=== PATIENT | male | born 1965 | race Two or more races ===

== ENCOUNTER 2019-04-04 18:53 | Emergency (ER) | payer SELFPAY ==
--- NOTE | 2019-04-04 19:21 | EDM.PDOC ---
ED HPI GENERAL MEDICAL PROBLEM - General Chief Complaint: Gastrointestinal Problem Stated Complaint: ABDOMINAL/BACK PAIN Time Seen by Provider: 04/04/19 19:21 - History of Present Illness INITIAL COMMENTS - FREE TEXT/NARRATIVE: 52-year-old male presents to the emergency room with colon problems. Several months back patient was diagnosed with colon cancer in [facility]. The patient has not had follow-up for this and now is in [place] and wants it dealt with. He has some discomfort with this he is able to eat and drink he is not aware of any fevers or chills. He is had no prior history of this problem. Lower Abdominal Pain Score (Numeric/FACES): 10 - Related Data Allergies Allergy/AdvReac Type Severity Reaction Status Date / Time No Known Allergies Allergy Verified 04/04/19 19:11 Home Meds: Home Meds . [No Known Home Meds] 04/04/19 [History] Past Medical History HEENT History: Reports: Other (See Below) Other HEENT History: glasses Gastrointestinal History: Reports: Hemorrhoids, Other (See Below) Other Gastrointestinal History: colon cancer Musculoskeletal History: Reports: Osteoporosis Other Musculoskeletal History: left hip osteoporosis Social & Family History - Tobacco Use Smoking Status *Q: Never Smoker Second Hand Smoke Exposure: No - Caffeine Use Caffeine Use: Reports: Coffee - Recreational Drug Use Recreational Drug Use: No ED ROS GENERAL - Review of Systems Review Of Systems: See Below Constitutional: Reports: No Symptoms HEENT: Reports: No Symptoms Respiratory: Reports: No Symptoms, Cough Endocrine: Reports: No Symptoms GI/Abdominal: Reports: Abdominal Pain. Denies: Constipation, Diarrhea, Nausea, Vomiting : Reports: No Symptoms Musculoskeletal: Reports: No Symptoms Skin: Reports: No Symptoms Neurological: Reports: No Symptoms Psychiatric: Reports: No Symptoms Hematologic/Lymphatic: Reports: No Symptoms ED EXAM, GI/ABD - Physical Exam Exam: See Below Exam Limited By: No Limitations General Appearance: Alert, No Apparent Distress Head: Atraumatic, Normocephalic Neck: Normal Inspection, Supple, Non-Tender, Full Range of Motion Respiratory/Chest: No Respiratory Distress, Lungs Clear, Normal Breath Sounds Cardiovascular: Regular Rate, Rhythm, No Edema, No Murmur GI/Abdominal Exam: Normal Bowel Sounds, Soft, Tender (Tenderness over the sigmoid colon then he has some vague lower quadrant discomfort no rigidity rebound or guarding) Back Exam: Normal Inspection. No: CVA Tenderness (L), CVA Tenderness (R) Course - Vital Signs Last Recorded V/S: Last Vital Signs Temp 36.7 C 04/04/19 19:10 Pulse 73 04/04/19 19:10 Resp 14 04/04/19 19:10 BP 158/86 H 04/04/19 19:10 Pulse Ox 99 04/04/19 19:10 - Orders/Labs/Meds Labs: Laboratory Tests 04/04/19 04/04/19 04/04/19 Range/Units 19:46 19:53 19:53 WBC 7.09 (4.23-9.07) K/mm3 RBC 4.38 L (4.63-6.08) M/mm3 Hgb 13.2 L (13.7-17.5) gm/dl Hct 36.6 L (40.1-51.0) % MCV 83.6 (79.0-92.2) fl MCH 30.1 (25.7-32.2) pg MCHC 36.1 H (32.2-35.5) g/dl RDW Std Deviation 38.3 (35.1-43.9) fL Plt Count 215 (163-337) K/mm3 MPV 10.5 (9.4-12.3) fl Neutrophils % (Manual) 43 (40-60) % Band Neutrophils % 2 (0-10) % Lymphocytes % (Manual) 46 H (20-40) % Atypical Lymphs % 0 % Monocytes % (Manual) 6 (2-10) % Eosinophils % (Manual) 3 (0.8-7.0) % Basophils % (Manual) 0 L (0.2-1.2) Platelet Estimate Adequate RBC Morph Comment Normal Sodium 144 (136-145) mEq/L Potassium 3.5 (3.5-5.1) mEq/L Chloride 108 H (98-107) mEq/L Carbon Dioxide 25 (21-32) mEq/L Anion Gap 14.5 (5-15) BUN 19 H (7-18) mg/dL Creatinine 0.8 (0.7-1.3) mg/dL Est Cr Clr Drug Dosing 109.62 mL/min Estimated GFR (MDRD) > 60 (>60) mL/min BUN/Creatinine Ratio 23.8 H (14-18) Glucose 97 (74-106) mg/dL Calcium 8.7 (8.5-10.1) mg/dL Total Bilirubin 0.4 (0.2-1.0) mg/dL AST 20 (15-37) U/L ALT 46 (16-63) U/L Alkaline Phosphatase 88 (46-116) U/L Total Protein 7.3 (6.4-8.2) g/dl Albumin 3.9 (3.4-5.0) g/dl Globulin 3.4 gm/dL Albumin/Globulin Ratio 1.2 (1-2) Lipase (73-393) U/L Urine Color Yellow (Yellow) Urine Appearance Clear (Clear) Urine pH 6.5 (5.0-8.0) Ur Specific [place] 1.025 (1.005-1.030) Urine Protein Negative (Negative) Urine Glucose (UA) Negative (Negative) Urine Ketones Negative (Negative) Urine Occult Blood Negative (Negative) Urine Nitrite Negative (Negative) Urine Bilirubin Negative (Negative) Urine Urobilinogen 0.2 (0.2-1.0) Ur Leukocyte Esterase Trace H (Negative) Urine RBC 0-5 (0-5) /hpf Urine WBC 5-10 H (0-5) /hpf Ur Squamous Epith Cells 0-5 (0-5) /hpf Urine Bacteria Few (FEW) /hpf Urine Mucus Few (FEW) /hpf 04/04/19 Range/Units 19:53 WBC (4.23-9.07) K/mm3 RBC (4.63-6.08) M/mm3 Hgb (13.7-17.5) gm/dl Hct (40.1-51.0) % MCV (79.0-92.2) fl MCH (25.7-32.2) pg MCHC (32.2-35.5) g/dl RDW Std Deviation (35.1-43.9) fL Plt Count (163-337) K/mm3 MPV (9.4-12.3) fl Neutrophils % (Manual) (40-60) % Band Neutrophils % (0-10) % Lymphocytes % (Manual) (20-40) % Atypical Lymphs % % Monocytes % (Manual) (2-10) % Eosinophils % (Manual) (0.8-7.0) % Basophils % (Manual) (0.2-1.2) Platelet Estimate RBC Morph Comment Sodium (136-145) mEq/L Potassium (3.5-5.1) mEq/L Chloride (98-107) mEq/L Carbon Dioxide (21-32) mEq/L Anion Gap (5-15) BUN (7-18) mg/dL Creatinine (0.7-1.3) mg/dL Est Cr Clr Drug Dosing mL/min Estimated GFR (MDRD) (>60) mL/min BUN/Creatinine Ratio (14-18) Glucose (74-106) mg/dL Calcium (8.5-10.1) mg/dL Total Bilirubin (0.2-1.0) mg/dL AST (15-37) U/L ALT (16-63) U/L Alkaline Phosphatase (46-116) U/L Total Protein (6.4-8.2) g/dl Albumin (3.4-5.0) g/dl Globulin gm/dL Albumin/Globulin Ratio (1-2) Lipase 193 (73-393) U/L Urine Color (Yellow) Urine Appearance (Clear) Urine pH (5.0-8.0) Ur Specific [place] (1.005-1.030) Urine Protein (Negative) Urine Glucose (UA) (Negative) Urine Ketones (Negative) Urine Occult Blood (Negative) Urine Nitrite (Negative) Urine Bilirubin (Negative) Urine Urobilinogen (0.2-1.0) Ur Leukocyte Esterase (Negative) Urine RBC (0-5) /hpf Urine WBC (0-5) /hpf Ur Squamous Epith Cells (0-5) /hpf Urine Bacteria (FEW) /hpf Urine Mucus (FEW) /hpf - Re-Assessments/Exams Free Text/Narrative Re-Assessment/Exam: 04/04/19 21:40 Labs reviewed case discussed with Dr. Grant immigration inspector surgeon. The patient should follow-up with Dr. Basilio at the surgery clinic tomorrow afternoon. Departure - Departure Time of Disposition: 21:40 Disposition: Home, Self-Care 01 Clinical Impression: History of colorectal cancer - Discharge Information Referrals: PCP,Not In Area [Primary Care Provider] - Forms: ED Department Discharge Additional Instructions: Return to the emergency room with any questions problems or worsening symptoms. Follow-up at the Hospital clinic to see Dr. Basilio tomorrow afternoon call in the morning for an appointment [phone]
== END 2019-04-04 21:58 | disposition home or self-care (01) ==
LOC: JD.ED 18:53
DX: R10.30 Lower abdominal pain, unspecified (principal); Z85.038 Personal history of other malignant neoplasm of large intestine
CPT/HCPCS: 36415; 80053; 81001; 83690; 85007; 85027; 99284

== ENCOUNTER 2019-04-13 07:02 | Day surgery (SDC) | payer OTHER ==
[~2019-04-13 07:02] MED LIST: Lactated Ringers 1,000 ML IV SCH; Lidocaine 1%/Sod Bicarbonate in NS 8.4% 1 ML Syringe IDERM PRN; Methylergonovine 0.2 MG/1 ML Amp ONE; Sodium Chloride 0.9% 10 ML Syringe FLUSH PRN
[2019-04-13] MEDS ORDERED: Propofol 200 MG/20 ML SDV ONE ×2 (07:19→08:03)
[2019-04-13] MEDS ORDERED: Lidocaine 1% 4 ML ONE (07:19)
[2019-04-13] MEDS ORDERED: Midazolam 1 MG/ML 2 ML SDV ONE (07:19)
[2019-04-13] MEDS ORDERED: fentaNYL 100 MCG/2 ML SDV ONE (07:19)
--- NOTE | 2019-04-13 07:24 | PCM.PREANE ---
Preanesthetic Assessment - Procedure Proposed Procedure: Colonoscopy - Anesthesia/Transfusion/Family Hx Anesthesia History: Prior Anesthesia Without Reaction Family History of Anesthesia Reaction: No Transfusion History: No Prior Transfusion(s) - Review of Systems General: No Symptoms Pulmonary: No Symptoms Cardiovascular: No Symptoms Gastrointestinal: No Symptoms Neurological: No Symptoms Other: Reports: None - Physical Assessment NPO Status Date: 04/12/19 NPO Status Time: 00:00 Height: 1.8 m Weight: 77.2 kg ASA Class: 2 Mental Status: Alert & Oriented x3 Airway Class: Mallampati = 2 Dentition: Reports: Normal Dentition Thyro-Mental Finger Breadths: 2 Mouth Opening Finger Breadths: 2 ROM/Head Extension: Full Lungs: Clear to Auscultation, Normal Respiratory Effort Cardiovascular: Regular Rate, Regular Rhythm - Allergies Allergies/Adverse Reactions: Allergies Allergy/AdvReac Type Severity Reaction Status Date / Time No Known Allergies Allergy Verified 04/12/19 12:20 - Blood Blood Available: No Product(s) Available: None - Anesthesia Plan Pre-Op Medication Ordered: None - Acknowledgements Anesthesia Type Planned: MAC Pt an Appropriate Candidate for the Planned Anesthesia: Yes Alternatives and Risks of Anesthesia Discussed w Pt/Guardian: Yes Pt/Guardian Understands and Agrees with Anesthesia Plan: Yes PreAnesthesia Questionnaire HEENT History: Reports: Impaired Vision, Other (See Below) Other HEENT History: glasses Cardiovascular History: Reports: None Respiratory History: Reports: None Gastrointestinal History: Reports: Hemorrhoids, Other (See Below) Other Gastrointestinal History: colon cancer Genitourinary History: Reports: None PAD CUTTER History: Reports: None Musculoskeletal History: Reports: Osteoporosis Other Musculoskeletal History: left hip osteoporosis Neurological History: Reports: None Psychiatric History: Reports: None Endocrine/Metabolic History: Reports: None Hematologic History: Reports: None Immunologic History: Reports: None Oncologic (Cancer) History: Reports: None Dermatologic History: Reports: None - Past Surgical History Head Surgeries/Procedures: Reports: None HEENT Surgical History: Reports: None Cardiovascular Surgical History: Reports: None Respiratory Surgical History: Reports: None Female Surgical History: Reports: None Male Surgical History: Reports: None Endocrine Surgical History: Reports: None Neurological Surgical History: Reports: None Oncologic Surgical History: Reports: None - SUBSTANCE USE Smoking Status *Q: Never Smoker Tobacco Use Within Last Twelve Months: No Second Hand Smoke Exposure: No Days Per Week of Alcohol Use: 0 Number of Drinks Per Day: 0 Total Drinks Per Week: 0 Recreational Drug Use History: No - HOME MEDS Home Medications: Home Meds Acetaminophen [Tylenol Extra Strength] 500 mg PO Q4H PRN 04/12/19 [History] Ibuprofen [Advil] 200 mg PO TID PRN 04/12/19 [History] - CURRENT (IN HOUSE) MEDS Current Meds: Current Medications Lactated Ringer's (Ringers, Lactated) 1,000 mls @ 125 mls/hr IV ASDIRECTED DARYL Stop: 04/13/19 23:00 Lidocaine/Sodium Bicarbonate (Buffered Lidocaine 1% In Ns 8.4%) 0.25 ml IDERM ONETIME PRN PRN Reason: Prior to IV Start Stop: 04/13/19 18:00 Sodium Chloride (Saline Flush) 10 ml FLUSH ASDIRECTED PRN PRN Reason: Keep Vein Open Stop: 04/13/19 18:00 Discontinued Medications Methylergonovine Maleate (Methergine) Confirm Administered Dose 0.2 mg .ROUTE .STK-MED ONE Stop: 04/12/19 09:10
[2019-04-13] MEDS ORDERED: Sodium Chloride 0.9% 1,000 ML IV SCH (07:45)
--- NOTE | 2019-04-13 08:37 | PCM48HPAN ---
Post Anesthesia Note - EVALUATION WITHIN 48HRS OF ANESTHETIC Vital Signs in Normal Range: Yes Patient Participated in Evaluation: Yes Respiratory Function Stable: Yes Airway Patent: Yes Cardiovascular Function Stable: Yes Hydration Status Stable: Yes Pain Control Satisfactory: Yes Nausea and Vomiting Control Satisfactory: Yes Mental Status Recovered: Yes Vital Signs: Last Vital Signs Temp 36.9 C 04/13/19 07:10 Pulse 80 04/13/19 07:10 Resp 16 04/13/19 07:10 BP 126/86 04/13/19 07:10 Pulse Ox 97 04/13/19 07:10 - COMMENTS/OBSERVATIONS Free Text/Narrative:: no anesthesia complications noted
--- NOTE | 2019-04-13 08:43 | PCM.PRGIL ---
Lower GI Endoscopy Procedure Procedure:: Reports: Colonoscopy Intervention:: Biopsy Biopsy (cm):: 5 Procedure Comments:: Rectal exam revealed large, indurated friable tumor within the anorectal complex spanning the length of the examining digit. Prep was fair. The scope was advanced to the cecum and slowly withdrawn. No additional lesions were identified. Jumbo forceps were used to take three separate tissue samples from the tumor, which was friable and bleeding. Performed By:: Lalo Basilio Date of Service:: 04/13/19 Informed Consent Obtained?: Yes Indications:: Reports: Hx of Colon CA/Polyps Rectodigital Exam:: Reports: Mass Rectodigital Exam Comments:: Large friable mass within anal canal and spanning to distal rectum Sedation:: Reports: IV Depth Reached (Location):: Reports: Cecum - Findings Rectal:: Reports: Other Rectal Comments:: see above Hemorrhoids:: Reports: None Complications:: Reports: None Cultures:: Reports: None - Follow-up Follow-Up:: patient will follow up to review pathology and obtain pelvic MRI to complete staging.
== END 2019-04-13 09:53 | disposition home or self-care (01) ==
LOC: JD.SDS 07:02
PROVIDERS: ATTEND Surgery
DX: C20 Malignant neoplasm of rectum (principal); M81.0 Age-related osteoporosis without current pathological fracture
CPT/HCPCS: 45380; J2001; J2210; J2250; J2704; J3010; J7040; 00811

== ENCOUNTER 2019-05-02 11:35 | Emergency (ER) | payer MEDICAID, OTHER ==
[2019-05-02] MEDS ORDERED: HYDROmorphone 0.5 MG/0.5 ML Syringe IM ONE (11:52)
--- NOTE | 2019-05-02 12:01 | EDM.PDOC ---
ED HPI GENERAL MEDICAL PROBLEM - General Chief Complaint: Abdominal Pain Stated Complaint: ABDOMINAL PAIN Time Seen by Provider: 05/02/19 11:47 Source of Information: Reports: Patient, Family, RN Notes Reviewed History Limitations: Reports: No Limitations - History of Present Illness INITIAL COMMENTS - FREE TEXT/NARRATIVE: Patient is a 53-year-old male who presents to the ED for evaluation of lower abdominal pain. The patient notes he has a recent diagnosis of colon cancer in January 2019. Patient states he is supposed to be starting treatment next week Wednesday. He was diagnosed through Dr. Joaquin at [facility] in [facility]. He notes that he is having lower abdominal pain, that radiates into his low back. He denies any problems pain able to go to the bathroom, he states it is somewhat painful with bowel movements, however his last normal bowel movement was just a few hours ago. He denies any dysuria, urinary frequency or urgency, chest pain, shortness of breath, nausea/vomiting/diarrhea , he states he is able to keep food and fluids down well. He has been trying to take some Tylenol, 500 mg, and 600 mg ibuprofen at home for pain relief, but this is not providing much relief. He notes that the doctor told him he was going to give him some stronger pain medications, but he did not receive this prescription. Patient denies any medical allergies, denies being on any other regular medications, and denies any further abdominal surgeries. 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: Reports: Acetaminophen (500mg) Lower Abdominal Pain Score (Numeric/FACES): 10 - Related Data Allergies Allergy/AdvReac Type Severity Reaction Status Date / Time No Known Allergies Allergy Verified 05/02/19 11:44 Home Meds: Home Meds Acetaminophen [Tylenol Extra Strength] 500 mg PO Q4H PRN 04/12/19 [History] Ibuprofen [Advil] 400 mg PO Q6H PRN 04/12/19 [History] Acetaminophen/oxyCODONE [Percocet 325-5 MG] 1 each PO Q6H PRN #28 tab 05/02/19 [ Rx] Past Medical History HEENT History: Reports: Impaired Vision, Other (See Below) Other HEENT History: glasses Cardiovascular History: Reports: None Respiratory History: Reports: None Gastrointestinal History: Reports: Hemorrhoids, Other (See Below) Other Gastrointestinal History: colon cancer Genitourinary History: Reports: None DRAMA PROFESSOR History: Reports: None Musculoskeletal History: Reports: Osteoporosis Other Musculoskeletal History: left hip osteoporosis Neurological History: Reports: None Psychiatric History: Reports: None Endocrine/Metabolic History: Reports: None Hematologic History: Reports: None Immunologic History: Reports: None Oncologic (Cancer) History: Reports: None Dermatologic History: Reports: None - Past Surgical History Head Surgeries/Procedures: Reports: None HEENT Surgical History: Reports: None Cardiovascular Surgical History: Reports: None Respiratory Surgical History: Reports: None Male Surgical History: Reports: None Endocrine Surgical History: Reports: None Neurological Surgical History: Reports: None Oncologic Surgical History: Reports: None Social & Family History - Tobacco Use Smoking Status *Q: Never Smoker - Caffeine Use Caffeine Use: Reports: Coffee Other Caffeine Use: rarely - Recreational Drug Use Recreational Drug Use: No ED ROS GENERAL - Review of Systems Review Of Systems: See Below Constitutional: Denies: Fever, Chills HEENT: Reports: No Symptoms Respiratory: Denies: Shortness of Breath Cardiovascular: Denies: Chest Pain Endocrine: Reports: No Symptoms GI/Abdominal: Reports: Abdominal Pain (SEE HPI). Denies: Black Stool, Bloody Stool, Constipation, Diarrhea, Nausea, Vomiting : Denies: Dysuria, Frequency, Urgency, Urinary Retention Musculoskeletal: Reports: No Symptoms Skin: Reports: No Symptoms Neurological: Reports: No Symptoms Psychiatric: Reports: No Symptoms Hematologic/Lymphatic: Reports: No Symptoms Immunologic: Reports: No Symptoms ED EXAM, GI/ABD - Physical Exam Exam: See Below Exam Limited By: No Limitations General Appearance: Alert, WD/WN, No Apparent Distress Eyes: Bilateral: Normal Appearance Throat/Mouth: Normal Inspection, Normal Lips, Normal Teeth, Normal Gums, Normal Oropharynx, Normal Voice, No Airway Compromise Respiratory/Chest: No Respiratory Distress, Lungs Clear, Normal Breath Sounds, No Accessory Muscle Use, Chest Non-Tender Cardiovascular: Normal Peripheral Pulses, Regular Rate, Rhythm, No Murmur GI/Abdominal Exam: Normal Bowel Sounds, Soft, No Distention, No Mass, Tender ( exquisite tenderness in bilateral lower abdomen, just slightly tender in upper abdomen). No: Rigid Back Exam: Normal Inspection, Full Range of Motion Extremities: Normal Inspection, Normal Capillary Refill Neurological: Alert, Oriented, Normal Cognition, No Motor/Sensory Deficits Psychiatric: Normal Affect, Normal Mood Skin Exam: Warm, Dry, Intact, Normal Color, No Rash Course - Vital Signs Last Recorded V/S: Last Vital Signs Temp 98.0 F 05/02/19 11:41 Pulse 90 05/02/19 11:41 Resp 18 05/02/19 11:41 BP 131/86 05/02/19 11:41 Pulse Ox 99 05/02/19 11:41 - Orders/Labs/Meds Meds: Medications Discontinued Medications Generic Name Dose Route Start Last Admin Trade Name Elliotq PRN Reason Stop Dose Admin Hydromorphone HCl 0.5 mg 05/02/19 11:52 05/02/19 11:57 Dilaudid IM 05/02/19 11:53 0.5 mg ONETIME ONE Administration - Re-Assessments/Exams Free Text/Narrative Re-Assessment/Exam: 05/02/19 12:02 Patient presents to the ED for the evaluation of lower abdominal pain. I did order 0.5 mg IM Dilaudid for initial pain management. The patient has not called his diagnosing DrAmna, for further pain management on an outpatient basis, I was in contact with Dr. Odonnell's nurse, and she did confirm that the patient has an appointment with oncology and radiation (Dr. Holcomb) next week Wednesday, May 08. At this time I will provide the patient with a few tablets of pain medication to get him through until this time, and then they should follow up with their regular doctors for further pain management. Dr. Odonnell's nurse notes that they usually try Percocet 5/325 for outpatient pain management. 05/02/19 12:36 Patient was reassessed at bedside, and states that his pain has went from a 10 out of 10, to a 6 out of 10. I will discharge him home with general recommendations at this time. Departure - Departure Time of Disposition: 12:36 Disposition: Home, Self-Care 01 Condition: Good Clinical Impression: Abdominal pain, lower, History of colorectal cancer - Discharge Information *PRESCRIPTION DRUG MONITORING PROGRAM REVIEWED*: No *COPY OF PRESCRIPTION DRUG MONITORING REPORT IN PATIENT EVA: No Prescriptions: Acetaminophen/oxyCODONE [Percocet 325-5 MG] 1 each PO Q6H PRN #28 tab PRN Reason: Pain Instructions: Opioid Pain Medicine Information, [id number] Referrals: Bear Joaquin MD [Primary Care Provider] - Forms: ED Department Discharge Additional Instructions: You were evaluated in the ER today regarding your abdominal pain. You were given an injection of Dilaudid in the ER today, this did provide pretty good relief for your symptoms. You have been provided with a prescription for Percocet, 5/325, for outpatient pain control. Please take one tab every 6 hours as needed for further pain relief. Recommend that you try to take as few as possible of these medications , as these can be quite addictive. This pain medication can also be quite constipating, recommend you start taking a stool softener like MiraLAX, to keep the bowels regular. Recommended that you do not drive while taking this medication, as it may impair your ability to drive. This medication was electronically prescribed to the clinic pharmacy located in the [facility]. You were given enough tablets to last you until you are evaluated by the oncologist on May 08. After this point, they will have to manage your pain medication and control from there. Percocet does contain acetaminophen (Tylenol), if you are taking extra Tylenol, do not take more than 4000 mg in a 24 hour time span. Please do not exceed 3200 mg ibuprofen in a 24-hour time span. Please return to the ER at any time if your symptoms change or worsen.
== END 2019-05-02 12:44 | disposition home or self-care (01) ==
LOC: JD.ED 11:35
DX: R10.30 Lower abdominal pain, unspecified (principal); Z85.038 Personal history of other malignant neoplasm of large intestine
CPT/HCPCS: 96372; 99283; J1170

== ENCOUNTER 2019-09-17 10:56 | Emergency (ER) | payer MEDICAID ==
--- NOTE | 2019-09-17 11:14 | EDM.PDOC ---
ED HPI GENERAL MEDICAL PROBLEM - General Chief Complaint: Chest Pain Stated Complaint: FEVER,COUGH AND CHEST PAIN Time Seen by Provider: 09/17/19 11:11 - History of Present Illness INITIAL COMMENTS - FREE TEXT/NARRATIVE: 54-year-old male presents the emergency room with fevers cough congestion and chest pain. Patient started having symptoms about 4 days ago with this is progressively getting worse. Patient is a significant history of colon cancer he had a colon resection with colostomy suprapubic catheter placement done on the of this month in [place] at the [facility]. The patient started having symptoms and bloody stools this last summer however did not say much about it and his diagnosis is fairly recent. Patient has not had any nausea or vomiting but has had a lot of upper abdominal gas and burping. Has not recently used ibuprofen and is only using Tylenol and his prescription pain medication after the surgery Chest Pain Score (Numeric/FACES): 7 - Related Data Allergies Allergy/AdvReac Type Severity Reaction Status Date / Time No Known Allergies Allergy Verified 05/02/19 11:44 Home Meds: Home Meds Acetaminophen [Tylenol Extra Strength] 500 mg PO Q4H PRN 04/12/19 [History] Ibuprofen [Advil] 400 mg PO Q6H PRN 04/12/19 [History] Acetaminophen/oxyCODONE [Percocet 325-5 MG] 1 each PO Q6H PRN #28 tab 05/02/19 [ Rx] Doxycycline [Vibramycin] 100 mg PO Q12H #19 tab 09/17/19 [Rx] Past Medical History HEENT History: Reports: Impaired Vision, Other (See Below) Other HEENT History: glasses Cardiovascular History: Reports: None Respiratory History: Reports: None Gastrointestinal History: Reports: Hemorrhoids, Other (See Below) Other Gastrointestinal History: colon cancer Genitourinary History: Reports: None 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 Musculoskeletal History: Reports: Osteoporosis Other Musculoskeletal History: left hip osteoporosis Neurological History: Reports: None Psychiatric History: Reports: None Endocrine/Metabolic History: Reports: None Hematologic History: Reports: None Immunologic History: Reports: None Oncologic (Cancer) History: Reports: None Dermatologic History: Reports: None - Past Surgical History Head Surgeries/Procedures: Reports: None HEENT Surgical History: Reports: None Cardiovascular Surgical History: Reports: None Respiratory Surgical History: Reports: None Male Surgical History: Reports: None Endocrine Surgical History: Reports: None Neurological Surgical History: Reports: None Oncologic Surgical History: Reports: None Social & Family History - Caffeine Use Caffeine Use: Reports: Coffee Other Caffeine Use: rarely ED ROS GENERAL - Review of Systems Review Of Systems: See Below Constitutional: Denies: Fever, Chills HEENT: Reports: No Symptoms Respiratory: Reports: Cough, Sputum. Denies: Shortness of Breath Cardiovascular: Reports: No Symptoms GI/Abdominal: Reports: Abdominal Pain, Other (Recent colon resection with colostomy placement). Denies: No Symptoms, Constipation : Reports: No Symptoms, Other (Suprapubic catheter placement otherwise no symptoms) Musculoskeletal: Reports: No Symptoms Skin: Reports: No Symptoms Neurological: Reports: No Symptoms, Confusion, Dizziness Psychiatric: Reports: No Symptoms Hematologic/Lymphatic: Reports: No Symptoms ED EXAM, GENERAL - Physical Exam Exam: See Below Exam Limited By: No Limitations General Appearance: Alert, No Apparent Distress Eye Exam: Bilateral Eye: Normal Inspection Ears: Normal External Exam, Normal Canal, Hearing Grossly Normal, Normal TMs, Other (Some non-obstructing cerumen noted in both external canals) Nose: Normal Inspection, Normal Mucosa, No Blood Throat/Mouth: Normal Inspection, Normal Lips, Normal Teeth, Normal Gums, Normal Oropharynx, Normal Voice, No Airway Compromise Head: Atraumatic, Normocephalic Neck: Normal Inspection, Supple, Non-Tender, Full Range of Motion, Other (No nuchal rigidity). No: Lymphadenopathy (L), Lymphadenopathy (R) Respiratory/Chest: No Respiratory Distress, Lungs Clear, Normal Breath Sounds Cardiovascular: Regular Rate, Rhythm, No Edema, No Murmur GI/Abdominal: Normal Bowel Sounds, Soft, Tender (Vague discomfort throughout. Probably normal given his postoperative status however the patient does have some significant epigastric discomfort.), Other (Surgical site transverse lower abdominal looks good. No significant drainage from the urostomy site small amount of redness which appears normal given the recent insertion and placement of this device) Back Exam: Normal Inspection. No: CVA Tenderness (L), CVA Tenderness (R) Extremities: Normal Inspection, Normal Range of Motion, Non-Tender Neurological: Alert, Oriented, Normal Cognition Skin Exam: Warm, Dry, Intact Course - Vital Signs Last Recorded V/S: Last Vital Signs Temp 36.9 C 09/17/19 11:08 Pulse 108 H 09/17/19 11:08 Resp 13 09/17/19 11:08 BP 147/94 H 09/17/19 11:08 Pulse Ox 95 09/17/19 11:08 - Orders/Labs/Meds Orders: Active Orders 24 hr Category Date Time Status EKG Documentation Completion [RC] STAT Care 09/17/19 11:33 Active Abdomen 2V AP Flat Upright [CR] Stat Exams 09/17/19 11:44 Taken Chest 2V [CR] Stat Exams 09/17/19 11:33 Taken CULTURE BLOOD [BC] Stat Lab 09/17/19 11:55 Received CULTURE BLOOD [BC] Stat Lab 09/17/19 12:10 Received Blood Culture x2 Reflex Set [OM.PC] Stat Oth 09/17/19 11:32 Ordered Isolation [COMM] Routine Oth 09/17/19 11:35 Ordered Labs: Laboratory Tests 09/17/19 09/17/19 09/17/19 Range/Units 12:10 12:10 12:10 WBC (4.23-9.07) K/mm3 RBC (4.63-6.08) M/mm3 Hgb (13.7-17.5) gm/dl Hct (40.1-51.0) % MCV (79.0-92.2) fl MCH (25.7-32.2) pg MCHC (32.2-35.5) g/dl RDW Std Deviation (35.1-43.9) fL Plt Count (163-337) K/mm3 MPV (9.4-12.3) fl Neut % (Auto) (34.0-67.9) % Lymph % (Auto) (21.8-53.1) % Whiteside % (Auto) (5.3-12.2) % Eos % (Auto) (0.8-7.0) Baso % (Auto) (0.1-1.2) % Neut # (Auto) (1.78-5.38) K/mm3 Lymph # (Auto) (1.32-3.57) K/mm3 Whiteside # (Auto) (0.30-0.82) K/mm3 Eos # (Auto) (0.04-0.54) K/mm3 Baso # (Auto) (0.01-0.08) K/mm3 Manual Slide Review PT 11.4 (9.7-12.0) SECONDS INR 1.05 Sodium 138 (136-145) mEq/L Potassium 3.5 (3.5-5.1) mEq/L Chloride 103 (98-107) mEq/L Carbon Dioxide 25 (21-32) mEq/L Anion Gap 13.5 (5-15) BUN 13 (7-18) mg/dL Creatinine 0.9 (0.7-1.3) mg/dL Est Cr Clr Drug Dosing 93.83 mL/min Estimated GFR (MDRD) > 60 (>60) mL/min BUN/Creatinine Ratio 14.4 (14-18) Glucose 131 H (74-106) mg/dL Lactic Acid 0.9 (0.4-2.0) mmol/L Calcium 8.6 (8.5-10.1) mg/dL Total Bilirubin 0.6 (0.2-1.0) mg/dL AST 28 (15-37) U/L ALT 39 (16-63) U/L Alkaline Phosphatase 91 (46-116) U/L Troponin I < 0.017 (0.00-0.056) ng/mL Total Protein 6.9 (6.4-8.2) g/dl Albumin 2.5 L (3.4-5.0) g/dl Globulin 4.4 gm/dL Albumin/Globulin Ratio 0.6 L (1-2) Urine Color (Yellow) Urine Appearance (Clear) Urine pH (5.0-8.0) Ur Specific [place] (1.005-1.030) Urine Protein (Negative) Urine Glucose (UA) (Negative) Urine Ketones (Negative) Urine Occult Blood (Negative) Urine Nitrite (Negative) Urine Bilirubin (Negative) Urine Urobilinogen (0.2-1.0) Ur Leukocyte Esterase (Negative) Urine RBC (0-5) /hpf Urine WBC (0-5) /hpf Ur Epithelial Cells (0-5) /hpf Urine Bacteria (FEW) /hpf Urine Mucus (FEW) /hpf 09/17/19 09/17/19 Range/Units 12:10 12:55 WBC 14.35 H (4.23-9.07) K/mm3 RBC 2.80 L (4.63-6.08) M/mm3 Hgb 8.1 L D (13.7-17.5) gm/dl Hct 24.5 L (40.1-51.0) % MCV 87.5 D (79.0-92.2) fl MCH 28.9 (25.7-32.2) pg MCHC 33.1 (32.2-35.5) g/dl RDW Std Deviation 39.0 (35.1-43.9) fL Plt Count 353 H D (163-337) K/mm3 MPV 9.0 L (9.4-12.3) fl Neut % (Auto) 89.8 H (34.0-67.9) % Lymph % (Auto) 3.1 L (21.8-53.1) % Whiteside % (Auto) 5.6 (5.3-12.2) % Eos % (Auto) 0.6 L (0.8-7.0) Baso % (Auto) 0.1 (0.1-1.2) % Neut # (Auto) 12.87 H (1.78-5.38) K/mm3 Lymph # (Auto) 0.45 L (1.32-3.57) K/mm3 Whiteside # (Auto) 0.80 (0.30-0.82) K/mm3 Eos # (Auto) 0.09 (0.04-0.54) K/mm3 Baso # (Auto) 0.02 (0.01-0.08) K/mm3 Manual Slide Review Abnormal smear PT (9.7-12.0) SECONDS INR Sodium (136-145) mEq/L Potassium (3.5-5.1) mEq/L Chloride (98-107) mEq/L Carbon Dioxide (21-32) mEq/L Anion Gap (5-15) BUN (7-18) mg/dL Creatinine (0.7-1.3) mg/dL Est Cr Clr Drug Dosing mL/min Estimated GFR (MDRD) (>60) mL/min BUN/Creatinine Ratio (14-18) Glucose (74-106) mg/dL Lactic Acid (0.4-2.0) mmol/L Calcium (8.5-10.1) mg/dL Total Bilirubin (0.2-1.0) mg/dL AST (15-37) U/L ALT (16-63) U/L Alkaline Phosphatase (46-116) U/L Troponin I (0.00-0.056) ng/mL Total Protein (6.4-8.2) g/dl Albumin (3.4-5.0) g/dl Globulin gm/dL Albumin/Globulin Ratio (1-2) Urine Color Yellow (Yellow) Urine Appearance Clear (Clear) Urine pH 6.5 (5.0-8.0) Ur Specific [place] 1.025 (1.005-1.030) Urine Protein 2+ H (Negative) Urine Glucose (UA) Negative (Negative) Urine Ketones Negative (Negative) Urine Occult Blood 3+ H (Negative) Urine Nitrite Negative (Negative) Urine Bilirubin Negative (Negative) Urine Urobilinogen 0.2 (0.2-1.0) Ur Leukocyte Esterase Negative (Negative) Urine RBC 20-30 H (0-5) /hpf Urine WBC 0-5 (0-5) /hpf Ur Epithelial Cells 0-5 (0-5) /hpf Urine Bacteria Few (FEW) /hpf Urine Mucus Not seen (FEW) /hpf Meds: Medications Discontinued Medications Generic Name Dose Route Start Last Admin Trade Name Freq PRN Reason Stop Dose Admin Al Hydroxide/Mg Hydroxide 30 0 ml 09/17/19 11:51 09/17/19 12:00 ml/ Lidocaine HCl 15 ml PO 09/17/19 11:52 45 ml ONETIME ONE Administration Lactated Ringer's 1,000 mls @ 999 mls/hr 09/17/19 11:36 09/17/19 12:01 Ringers, Lactated IV 09/17/19 12:36 999 mls/hr .BOLUS ONE Administration - Re-Assessments/Exams Free Text/Narrative Re-Assessment/Exam: 09/17/19 14:23 The patient received some fluids and seems to be doing a little better. Work- up thus far is unremarkable except for a white count that slightly elevated at 14,000 automated differential is unrevealing troponin is negative he is not having any active chest discomfort. He has an anemia most likely from his surgical and potentially preop blood loss not requiring transfusion at this point. At this point the patient feels comfortable to go home blood culture still pending influenza screen negative patient will be seen for his cancer follow-up on Wednesday and I believe started on chemotherapy. At this point the patient be started on doxycycline. His urinalysis is nonrevealing other than some microscopic hematuria most likely due to the recent instrumentation. With the limited resources for Covid 19 screening and his limited symptoms we will not pursue this at this point he has not started chemotherapy yet. Departure - Departure Time of Disposition: 14:29 Disposition: Home, Self-Care 01 Clinical Impression: Cough in adult - Discharge Information Prescriptions: Doxycycline [Vibramycin] 100 mg PO Q12H #19 tab Referrals: Demian Rodriguez Jr, MD [Primary Care Provider] - Forms: ED Department Discharge Additional Instructions: Return to the emergency room with any questions problems or worsening symptoms. Follow-up in 2 days for recheck sounds like you are getting be seen on Wednesday anyway. At this point will be started on doxycycline this is an antibiotic take 1 twice daily for 10 days. Your first dose was given in the emergency room Sepsis Event Note - Evaluation Sepsis Screening Result: No Definite Risk - Focused Exam Vital Signs: Vital Signs Temp Pulse Resp BP Pulse Ox 09/17/19 11:08 36.9 C 108 H 13 147/94 H 95 Date Exam was Performed: 09/17/19 Time Exam was Performed: 14:23 - My Orders Last 24 Hours: My Active Orders 09/17/19 11:32 Blood Culture x2 Reflex Set [OM.PC] Stat 09/17/19 11:33 EKG Documentation Completion [RC] STAT Chest 2V [CR] Stat 09/17/19 11:35 Isolation [COMM] Routine 09/17/19 11:44 Abdomen 2V AP Flat Upright [CR] Stat 09/17/19 11:55 CULTURE BLOOD [BC] Stat 09/17/19 12:10 CULTURE BLOOD [BC] Stat - Assessment/Plan Last 24 Hours: My Active Orders 09/17/19 11:32 Blood Culture x2 Reflex Set [OM.PC] Stat 09/17/19 11:33 EKG Documentation Completion [RC] STAT Chest 2V [CR] Stat 09/17/19 11:35 Isolation [COMM] Routine 09/17/19 11:44 Abdomen 2V AP Flat Upright [CR] Stat 09/17/19 11:55 CULTURE BLOOD [BC] Stat 09/17/19 12:10 CULTURE BLOOD [BC] Stat
[2019-09-17] MEDS ORDERED: Lactated Ringers 1,000 ML IV ONE (11:36)
[2019-09-17] MEDS ORDERED: Alum Hydrox/Mag Hydrox/Simeth 30 ML, Lidocaine 2% 15 ML PO ONE ×2 (11:51)
[2019-09-17] MEDS ORDERED: Doxycycline 100 MG Cap PO ONE (14:27)
--- NOTE | 2019-09-18 07:43 | CR ---
Chest: 2 views of the chest were obtained. Comparison: No prior chest x-ray. Heart size is normal. Slight tortuosity of the thoracic aorta is seen. Minimal linear densities within both lung bases either due to atelectasis or possibly scarring. Lungs otherwise are clear. No acute parenchymal change is seen. Scattered degenerative change is noted within the spine with minimal scoliosis. Impression: 1. Slight atelectasis or scarring within both lung bases. 2. Other findings as noted above. Nothing acute is definitely appreciated. Diagnostic code #2 This report was dictated in MDT
--- NOTE | 2019-09-18 07:47 | CR ---
Abdomen: Upright view the abdomen was obtained. Bowel gas pattern appears normal. Midline surgical clips are seen within the pelvis. Bony structures are within normal limits for the patient's age. Degenerative change is noted within both hips. Impression: 1. Nothing acute is seen on upright abdominal x-ray. Diagnostic code #2 This report was dictated in MDT
== END 2019-09-17 14:46 | disposition home or self-care (01) ==
LOC: JD.ED 10:56
DX: R05 Cough (principal); R07.9 Chest pain, unspecified
CPT/HCPCS: 36415; 71046; 74019; 80053; 81001; 83605; 84484; 85025; 85610; 87040; 87804; 93005; 96360; 99285; A9270; J7120; 93010; 99283

== ENCOUNTER 2019-09-18 00:03 | Emergency (ER) | payer MEDICAID ==
--- NOTE | 2019-09-18 00:37 | EDM.PDOC ---
ED HPI GENERAL MEDICAL PROBLEM - General Chief Complaint: Gastrointestinal Problem Stated Complaint: BLEEDING FROM rectal area Time Seen by Provider: 09/18/19 00:34 Source of Information: Reports: Patient History Limitations: Reports: No Limitations - History of Present Illness INITIAL COMMENTS - FREE TEXT/NARRATIVE: 54-year-old male presents to the ED with sanguinous drainage from his perianal surgical wound site. 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 The was to have a Tello catheter placed but due to a urethral stricture ended up with a suprapubic catheter placement which is in place at this time. He has a colostomy left lower quadrant. He presented earlier yesterday with fever chills and a cough. He denies any cough presents now. Chest x-ray was done at that time which was apparently negative for pneumonia. Patient was discharged home on doxycycline 100 mg twice daily for 10 days. Evening he appreciated that he was bleeding from his surgical wound and he could not tell exactly where. He states he does not have much pain in the area. Of note he did have fever and chills earlier today. Onset: Today, Sudden Onset Date: 09/18/19 Onset Time: 00:00 Duration: Minutes: Location: Reports: Other (Purulent/bloody drainage from his surgical wound perianal area. Patient underwent an abdominal perineal resection with colostomy for more information due to a low-lying rectal carcinoma on September 04 [address] [place] [address] Joaquin.) Quality: Reports: Other (Sanguinous drainage perianal area) Severity: Moderate Improves with: Reports: None Worsens with: Reports: None Context: Reports: Other (Spontaneous occurrence at midnight tonight.). Denies: Activity, Exercise, Lifting, Sick Contact, Trauma Associated Symptoms: Reports: Fever/Chills (Patient was seen earlier today yesterday with fever chills and cough.), Malaise, Other. 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 Musculoskeletal History: Reports: Osteoporosis Other Musculoskeletal History: left hip osteoporosis Neurological History: Reports: None Psychiatric History: Reports: None Endocrine/Metabolic History: Reports: None Hematologic History: Reports: None Immunologic History: Reports: None Oncologic (Cancer) History: Reports: None Dermatologic History: Reports: None - Past Surgical History Head Surgeries/Procedures: Reports: None HEENT Surgical History: Reports: None Cardiovascular Surgical History: Reports: None Respiratory Surgical History: Reports: None Male Surgical History: Reports: None Endocrine Surgical History: Reports: None Neurological Surgical History: Reports: None Oncologic Surgical History: Reports: None Social & Family History - Tobacco Use Smoking Status *Q: Never Smoker - Caffeine Use Caffeine Use: Reports: None Other Caffeine Use: rarely - Living Situation & Occupation Living situation: Reports: Occupation: Unemployed ED ROS GENERAL - Review of Systems Review Of Systems: See Below Constitutional: Reports: Fever, Chills, Malaise, Weakness, Fatigue, Decreased Appetite (We will try to get back onto solid foods. Most of his diet is been liquid so far.) HEENT: Reports: No Symptoms Respiratory: Reports: No Symptoms Cardiovascular: Reports: No Symptoms Endocrine: Reports: Fatigue GI/Abdominal: Reports: Abdominal Pain (Surgical site. He has regina across his entire lower abdomen. Colostomy left lower quadrant. Abdominal perineal resection), Other (Use ecchymoses across the lower abdomen. Reports his ostomy has been working well.) : Reports: Other (Has a suprapubic Tello catheter draining into a leg bag.) Musculoskeletal: Reports: Other (And getting around with the aid of a walker. This is due to weakness in his lower extremities) Skin: Reports: Other (Wound across the lower abdomen and perirectal area) Neurological: Reports: No Symptoms ( his anus was resected.) Psychiatric: Reports: No Symptoms Hematologic/Lymphatic: Reports: No Symptoms Immunologic: Reports: No Symptoms ED EXAM, GI/ABD - Physical Exam Exam: See Below Exam Limited By: Language Barrier (Mild language barrier.) General Appearance: Alert, WD/WN, Mild Distress, Thin, Other (Peers unwell. Temperature is 37.0 with a heart rate of 122 at the bedside. Respiratory it was 18 BP was 07[birth year]20/1970. He did feel warm to palpation particular in his hands and arms and face.) Eyes: Bilateral: Normal Appearance (Mild blepharal pallor no scleral icterus.) Throat/Mouth: Normal Lips, Other Head: Atraumatic, Normocephalic Neck: Normal Inspection, Supple, Non-Tender, Full Range of Motion. No: Lymphadenopathy (L), Lymphadenopathy (R) Respiratory/Chest: No Respiratory Distress, Lungs Clear, Normal Breath Sounds, No Accessory Muscle Use, Chest Non-Tender Cardiovascular: Normal Peripheral Pulses, Regular Rate, Rhythm, No Edema, No Murmur, No Rub GI/Abdominal Exam: Normal Bowel Sounds, Soft, Other (Ostomy with recent formation left lower quadrant of the abdomen. He has a surgical wound across the entire lower aspect of the abdomen that is closed with regina. The area is diffusely ecchymotic. No signs of wound infection. The abdomen itself is slightly distended and firm to palpation. No localized peritoneal signs.) (Male) Exam: Other (He has a suprapubic Tello catheter in place draining to a leg bag.) Rectal (Males) Exam: Other (Patient's drainage is coming from superior to where the anus was. I was able to squish the area and obtain purulent bloody discharge approximately 10-15 mils. It did not seem to be painful for the patient in the surrounding areas not erythematous. The perianal tissues appear to be healing satisfactorily. There is one area which looks like a large hemorrhoid on the left side of where the anus used to be. White in color not dark blue) Back Exam: Normal Inspection ( or venous in appearance), Full Range of Motion. No: CVA Tenderness (L), CVA Tenderness (R) Extremities: Normal Inspection, Normal Range of Motion, No Pedal Edema Neurological: Alert, Oriented, CN II-XII Intact, Normal Cognition Psychiatric: Normal Affect, Normal Mood, Other Skin Exam: Warm, Dry (Very pleasant fellow), Other Course - Vital Signs Last Recorded V/S: Last Vital Signs Temp 37.0 C 09/18/19 00:13 Pulse 122 H 09/18/19 00:13 Resp 18 09/18/19 00:13 BP 123/71 09/18/19 00:13 Pulse Ox - Orders/Labs/Meds Orders: Active Orders 24 hr Category Date Time Status Abdomen Pelvis w Cont [CT] Stat Exams 09/18/19 01:28 Taken CULTURE ANAEROBIC + SMEAR [RM] Stat Lab 09/18/19 01:15 Received CULTURE BLOOD [BC] Stat Lab 09/18/19 00:50 Received CULTURE BLOOD [BC] Stat Lab 09/18/19 01:03 Received CULTURE WOUND [RM] Stat Lab 09/18/19 01:15 Received Dextrose 5%-Lactated Ringers 1,000 ml Med 09/18/19 00:45 Active IV ASDIRECTED Magnesium Sulfate/Water [Magnesium Sulfate in Water Med 09/18/19 03:00 Active Premix] 2 gm Premix Bag 1 bag IV Q1H Sodium Chloride 0.9% [Saline Flush] Med 09/18/19 01:41 Active 10 ml FLUSH ONETIME PRN Blood Culture x2 Reflex Set [OM.PC] Stat Oth 09/18/19 00:35 Ordered Medication Orders Dextrose/Lactated Ringer's (Dextrose 5%-Lactated Ringers) 1,000 mls @ 500 mls/ hr IV ASDIRECTED DARYL Last Admin: 09/18/19 00:55 Dose: 500 mls/hr Magnesium Sulfate 2 gm/ Premix 50 mls @ 25 mls/hr IV Q1H DARYL Stop: 09/18/19 04:59 Last Admin: 09/18/19 03:40 Dose: 25 mls/hr Sodium Chloride (Saline Flush) 10 ml FLUSH ONETIME PRN PRN Reason: KEEP VEIN OPEN Last Admin: 09/18/19 02:02 Dose: 10 ml Labs: Laboratory Tests 09/18/19 09/18/19 09/18/19 Range/Units 00:50 00:50 00:50 WBC 13.10 H (4.23-9.07) K/mm3 RBC 2.99 L (4.63-6.08) M/mm3 Hgb 8.6 L (13.7-17.5) gm/dl Hct 26.2 L (40.1-51.0) % MCV 87.6 (79.0-92.2) fl MCH 28.8 (25.7-32.2) pg MCHC 32.8 (32.2-35.5) g/dl RDW Std Deviation 39.4 (35.1-43.9) fL Plt Count 344 H (163-337) K/mm3 MPV 8.9 L (9.4-12.3) fl Neutrophils % (Manual) 91 H (40-60) % Band Neutrophils % 1 (0-10) % Lymphocytes % (Manual) 4 L (20-40) % Atypical Lymphs % 0 % Monocytes % (Manual) 4 (2-10) % Eosinophils % (Manual) 0 L (0.8-7.0) % Basophils % (Manual) 0 L (0.2-1.2) Toxic Granulation 1+ slight Platelet Estimate Adequate Microcytosis 1+ slight RBC Morph Comment Not Reportable Sodium 139 (136-145) mEq/L Potassium 3.4 L (3.5-5.1) mEq/L Chloride 103 (98-107) mEq/L Carbon Dioxide 26 (21-32) mEq/L Anion Gap 13.4 (5-15) BUN 12 (7-18) mg/dL Creatinine 1.0 (0.7-1.3) mg/dL Est Cr Clr Drug Dosing 84.45 mL/min Estimated GFR (MDRD) > 60 (>60) mL/min BUN/Creatinine Ratio 12.0 L (14-18) Glucose 128 H (74-106) mg/dL Lactic Acid 1.4 (0.4-2.0) mmol/L Calcium 8.4 L (8.5-10.1) mg/dL Magnesium 1.6 L (1.8-2.4) mg/dl Total Bilirubin 0.7 (0.2-1.0) mg/dL AST 25 (15-37) U/L ALT 38 (16-63) U/L Alkaline Phosphatase 84 (46-116) U/L C-Reactive Protein 21.6 H* (<1.0) mg/dL Total Protein 6.7 (6.4-8.2) g/dl Albumin 2.4 L (3.4-5.0) g/dl Globulin 4.3 gm/dL Albumin/Globulin Ratio 0.6 L (1-2) Meds: Medications Generic Name Dose Route Start Last Admin Trade Name Freq PRN Reason Stop Dose Admin Dextrose/Lactated Ringer's 1,000 mls @ 500 mls/hr 09/18/19 00:45 09/18/19 00: 55 Dextrose 5%-Lactated Ringers IV 500 mls/hr ASDIRECTED DARYL Administration Magnesium Sulfate 2 gm/ Premix 50 mls @ 25 mls/hr 09/18/19 03:00 09/18/19 03: 40 IV 09/18/19 04:59 25 mls/hr Q1H DARYL Administration Sodium Chloride 10 ml 09/18/19 01:41 09/18/19 02:02 Saline Flush FLUSH 10 ml ONETIME PRN Administration KEEP VEIN OPEN Discontinued Medications Generic Name Dose Route Start Last Admin Trade Name Freq PRN Reason Stop Dose Admin Ertapenem 1 gm 09/18/19 02:00 09/18/19 02:31 Invanz IVPUSH 09/18/19 02:01 1 gm ONETIME ONE Administration Metronidazole 500 mg/ Premix 100 mls @ 100 mls/hr 09/18/19 02:00 09/18/19 02: 36 IV 09/18/19 02:59 100 mls/hr ONETIME ONE Administration Iopamidol 100 ml 09/18/19 01:41 09/18/19 02:02 Isovue-300 (61%) IVPUSH 09/18/19 01:42 100 ml ONETIME ONE Administration - Radiology Interpretation Free Text/Narrative:: 54-year-old male presents to the ED with sanguinous purulent discharge from surgical wound of the perianal area. Patient underwent an abdominal perineal resection and by Dr. Joaquin at [facility] in [place] on September 04. Therefore the anus has been removed. There is a purulent sanguinous material draining from a small wound superiorly to where the anus used to be. I expressed approximately 15 mils of fluid from this area and cultures were obtained for both anaerobic and aerobic cultures. The patient was seen earlier in the day with fever chills and a cough. States he had not been feeling well since Wednesday. Apparently the chest x-ray was negative for pneumonia. Plan repeat labs including blood cultures x2 to be done. The question is whether his fever chills are likely coming from postoperative site. He will require CT of the abdomen with IV contrast. No function within the last 24 hours showed a creatinine of 0.9 and a GFR greater than 60. - Re-Assessments/Exams Free Text/Narrative Re-Assessment/Exam: 09/18/19 01:24 have reviewed the chest x-ray that was done earlier yesterday and essentially was within normal limits. Count was 14.35 with 90% neutrophils on the auto differential. Hemoglobin was low at 8.1 with hematocrit of 24.5. Urinalysis showed 20-30 RBCs per per field and 3+ occult blood and 2+ proteinuria but no signs of infection. Cultures x2 were done at the time he was seen. Is afebrile at with a temperature of 36.9 but heart rate of 108 at the bedside. BP was 147/94 at that time with O2 sats of 95%. Chemistry revealed a low sodium at 3.5 and anion gap of 13.5 slightly elevated glucose at 131 lactic acid of 0.9. Cardiac markers were normal. 09/18/19 01:58 White count is slightly elevated at 13.10. 91% neutrophils 1% band cells. Hemoglobin is 8.6 with hematocrit of 26.2. MCV is 87.6 . Daily count is mildly elevated at 344,000. Sodium was 139 potassium slightly low at 3.4. Chloride 103 with a bicarb of 26. Anion gap is 13.4 BUN is 12 with a creatinine of 1.0. GFR remains greater than 60. Glucose is 128 lactic acid 1.4 calcium 8.4. Magnesium slightly low at 1.6. Liver function is normal. C- reactive protein is elevated at 21.6 total protein is 6.7 with an albumin fraction of 2.4. I am going to go ahead and give him a dose of Invanz 1.0 g at this time ordered by Flagyl 500 mg IV. I will also start him on magnesium supplementation 2 g over the next hour or so. I will wait for the CT of the abdomen and pelvis to be completed before contacting surgeon on-call at [facility] in [place]. 09/18/19 03:23 now have [facility] culture report. Liver shows it to be normal with no masses. Gallbladder and bile ducts show no calcified stones no ductal dilatation. Pancreas is felt to be normal with no ductal dilatation. Spleen is normal with no splenomegaly. Adrenals are normal with no masses. Kidneys and ureters showed mild bilateral hydronephrosis. Left greater than the right with no obstructing renal or ureteral stones identified. Stomach and bowel postoperative changes status post abdominal perineal resection for rectal carcinoma with left lower quadrant colostomy. The appendix is visualized and is appears to be normal. In the intra-peritoneal space pelvic and presacral fluid extending down to the perineum is identified. It measures approximately 4.1 x 3.1 cm extending craniocaudally to 8.2 cm small galindo of gas within the pelvis appreciated. Vasculature appears unremarkable lymph nodes appear unremarkable. Bladder suprapubic catheter in place. Bladder wall appears thickened and there is some pericystic induration. Degenerative changes throughout the visualized thoracic and lumbar spine appreciated. In the soft tissues of the abdominal wall there is thickening fluid and gas within the rectus muscles underlying the abdominal incision on the left it measures 6.1 x 1.9 cm and on the right measures 5.4 x 1.9 cm subcutaneous stranding with small loculated fluid pockets within the anterior abdominal wall underlying the incision site. The largest fluid pocket on the left measures approximately 3.5 x 2.5 cm. I therefore spoke with Dr. Joaquin by phone at this time. He feels that the patient will do well with oral antibiotics and recommended Cipro and Flagyl. Therefore the patient will be allowed to go home and recover. Put him on a Slow-Mag tablet as well for magnesium supplementation until he heals up a 30-day supply. Cipro will be 500 mg twice daily for 10 days and Flagyl will be 500 mg 3 times daily for 8 days. As the patient then he needs to see Dr. Joaquin later this week ideally or Wednesday. He will phone to make his own appointment. Departure - Departure Time of Disposition: 04:30 Disposition: Home, Self-Care 01 Condition: Fair Clinical Impression: Pelvic fluid collection, History of colorectal cancer Abdominal wall seroma Qualifiers: Encounter type: initial encounter Qualified Code(s): S30.1XXA - Contusion of abdominal wall, initial encounter - Discharge Information *PRESCRIPTION DRUG MONITORING PROGRAM REVIEWED*: Not Applicable *COPY OF PRESCRIPTION DRUG MONITORING REPORT IN PATIENT EVA: Not Applicable Prescriptions: Ciprofloxacin HCl [Cipro] 500 mg PO BID #20 tablet Magnesium Chloride [Slow-Mag] 71.5 mg PO DAILY #30 tablet. metroNIDAZOLE [Flagyl] 500 mg PO Q8H #24 tab Instructions: Seroma Referrals: Deiman Rodriguez Jr, MD [Primary Care Provider] - Forms: ED Department Discharge Additional Instructions: Evaluation in the emergency room tonight in regards to abrupt onset of bloody drainage from your perianal wound. You have had recent abdominal perineal resection for a low-lying rectal cancer. Bleeding is coming from the superior aspect of the surgical wound where the anus was removed. Cultures were obtained. CT reveals that there is a collection of fluid within the pelvis with possible early abscess development. I did speak with Dr. Joaquin about this and he felt he would be okay on oral antibiotics after treatment with intravenous antibiotics in the ED. Therefore the doxycycline that was prescribed yesterday is to be discontinued. It is to be replaced with 2 new antibiotics. The first will be Cipro 500 mg twice daily for the next 10 days. The next will be Flagyl 500 mg 3 times daily for the next 8 days. You need to see Dr. Joaquin later this week in clinic. Ideally or Wednesday. Please phone to make an appointment. I have sent your notes from today's examination and copies of the CT to his office. Sepsis Event Note - Evaluation Sepsis Screening Result: No Definite Risk - Focused Exam Vital Signs: Vital Signs Temp Pulse Resp BP 09/18/19 00:13 37.0 C 122 H 18 123/71 Date Exam was Performed: 09/18/19 Time Exam was Performed: 04:19 - My Orders Last 24 Hours: My Active Orders 09/18/19 00:35 Blood Culture x2 Reflex Set [OM.PC] Stat 09/18/19 00:45 Dextrose 5%-Lactated Ringers 1,000 ml IV ASDIRECTED 09/18/19 00:50 CULTURE BLOOD [BC] Stat 09/18/19 01:03 CULTURE BLOOD [BC] Stat 09/18/19 01:15 CULTURE ANAEROBIC + SMEAR [RM] Stat CULTURE WOUND [RM] Stat 09/18/19 01:28 Abdomen Pelvis w Cont [CT] Stat 09/18/19 01:41 Sodium Chloride 0.9% [Saline Flush] 10 ml FLUSH ONETIME PRN 09/18/19 03:00 Magnesium Sulfate/Water [Magnesium Sulfate in Water Premix] 2 gm Premix Bag 1 bag IV Q1H - Assessment/Plan Last 24 Hours: My Active Orders 09/18/19 00:35 Blood Culture x2 Reflex Set [OM.PC] Stat 09/18/19 00:45 Dextrose 5%-Lactated Ringers 1,000 ml IV ASDIRECTED 09/18/19 00:50 CULTURE BLOOD [BC] Stat 09/18/19 01:03 CULTURE BLOOD [BC] Stat 09/18/19 01:15 CULTURE ANAEROBIC + SMEAR [RM] Stat CULTURE WOUND [RM] Stat 09/18/19 01:28 Abdomen Pelvis w Cont [CT] Stat 09/18/19 01:41 Sodium Chloride 0.9% [Saline Flush] 10 ml FLUSH ONETIME PRN 09/18/19 03:00 Magnesium Sulfate/Water [Magnesium Sulfate in Water Premix] 2 gm Premix Bag 1 bag IV Q1H
[2019-09-18] MEDS ORDERED: Dextrose 5%-Lactated Ringers 1,000 ML IV SCH (00:45)
[2019-09-18] MEDS ORDERED: Sodium Chloride 0.9% 10 ML Syringe FLUSH PRN (01:41)
[2019-09-18] MEDS ORDERED: Iopamidol 612 MG/ML 100 ML Bottle IVPUSH ONE (01:41)
[2019-09-18] MEDS ORDERED: Ertapenem 1 GM Vial IVPUSH ONE (02:00)
[2019-09-18] MEDS ORDERED: metroNIDAZOLE/Normal Saline 500 MG in Premix Bag 1 BAG IV ONE (02:00)
[2019-09-18] MEDS ORDERED: Magnesium Sulfate/Water 2 GM in Premix Bag 1 BAG IV SCH (03:00)
--- NOTE | 2019-09-18 07:47 | CT ---
CT abdomen and pelvis Technique: Multiple axial sections were obtained from above the dome of the diaphragm inferiorly through the pubic symphysis. Intravenous contrast was utilized. No oral contrast has been given. Delayed images were also obtained through the bladder. Comparison: Prior CT abdomen and pelvis exam of 04/10/19. Findings: Mild atelectasis is noted within both lung bases. Liver contains no focal abnormality. Spleen appears within normal limits. Pancreas is within normal limits. Adrenal glands show no nodule. Kidneys show symmetric contrast enhancement. Dilated ureter is seen on the left side without obstructing lesion. Delayed images shows contrast within both distal ureters without evidence of ureteral obstruction. Aorta shows no aneurysm. No retroperitoneal adenopathy is seen. Interval colostomy from prior CT exam is noted. Presacral soft tissue density is seen most likely representing change from previous surgery. Slightly prominent bowel wall thickening within the distal small bowel presumably due to postoperative change. Wall thickening is seen within the bladder with suprapubic catheter in place, please exclude any symptoms of cystitis. Abdominal wall skin regina are noted. Haziness within the anterior subcutaneous tissues are seen presumably due to change from inflammation. There is ill-defined fluid within the anterior abdominal wall which may represent postoperative seroma but difficult to completely exclude ill-defined early abscess. Air as well as soft tissue edema is noted within both abdominal wall rectus muscles. Impression: 1. Prior surgery. 2. Haziness within the anterior abdominal wall most likely from recent surgery. Skin regina are present in this area. Ill-defined fluid collections within the anterior subcutaneous fat is seen within this same area which is most likely postop seroma but difficult to exclude developing abscess. 3. Air and low density within both abdominal rectus muscles most likely postoperative but again difficult to completely exclude infection. 4. Other findings as noted above believed to be incidental. Diagnostic code #3 This report was dictated in MDT I agree with preliminary report from [facility], finalized on 09/18/19, 4:05 AM Central Time
== END 2019-09-18 05:00 | disposition home or self-care (01) ==
LOC: JD.ED 00:03
DX: L76.34 Postprocedural seroma of skin and subcutaneous tissue following other procedure (principal); S30.1XXA Contusion of abdominal wall, initial encounter; X58.XXXA Exposure to other specified factors, initial encounter
CPT/HCPCS: 36415; 74177; 80053; 83605; 83735; 85007; 85027; 86140; 87040; 87075; 87205; 96361; 96365; 96367; 96375; 99284; J1335; J3475; J3490; J7121; Q9967

== ENCOUNTER 2019-09-23 13:07 | Emergency (ER) | payer MEDICAID ==
--- NOTE | 2019-09-23 13:58 | EDM.PDOC ---
ED HPI GENERAL MEDICAL PROBLEM - General Chief Complaint: Genitourinary Problem Stated Complaint: [facility] Time Seen by Provider: 09/23/19 13:41 Source of Information: Reports: Patient, Family History Limitations: Reports: No Limitations - History of Present Illness INITIAL COMMENTS - FREE TEXT/NARRATIVE: Patient is a 54-year-old male brought in by EMS because he thought he had dislodged his suprapubic catheter. 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 At that time he also had a suprapubic catheter and ostomy placed. He states that he stood up today and his catheter got caught. He had a little bit of drainage from around the catheter site, however the catheter is still sutured in place and draining well. He is also still been having some serosanguineous drainage from an incision in the crease of his buttocks. He is on Cipro and Flagyl for this as they state it was previously infected. He saw Dr. Rodriguez this last week and also has a follow-up appoint with him scheduled on Wednesday. His next appointment with the surgeon in [place] is not until 05 October. He has had no fever, chills, nausea, or vomiting. - Related Data Allergies Allergy/AdvReac Type Severity Reaction Status Date / Time No Known Allergies Allergy Verified 09/23/19 13:28 Home Meds: Home Meds Acetaminophen [Tylenol Extra Strength] 500 mg PO Q4H PRN 04/12/19 [History] Ibuprofen [Advil] 400 mg PO Q6H PRN 04/12/19 [History] Acetaminophen/oxyCODONE [Percocet 325-5 MG] 1 each PO Q6H PRN #28 tab 05/02/19 [ Rx] Ciprofloxacin HCl [Cipro] 500 mg PO BID #20 tablet 09/18/19 [Rx] Magnesium Chloride [Slow-Mag] 71.5 mg PO DAILY #30 tablet. 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 Musculoskeletal History: Reports: Osteoporosis Other Musculoskeletal History: left hip osteoporosis Neurological History: Reports: None Psychiatric History: Reports: None Endocrine/Metabolic History: Reports: None Hematologic History: Reports: None Immunologic History: Reports: None Oncologic (Cancer) History: Reports: None Dermatologic History: Reports: None - Past Surgical History Head Surgeries/Procedures: Reports: None HEENT Surgical History: Reports: None Cardiovascular Surgical History: Reports: None Respiratory Surgical History: Reports: None GI Surgical History: Reports: Colostomy Male Surgical History: Reports: Suprapubic Catheter Placement Endocrine Surgical History: Reports: None Neurological Surgical History: Reports: Other (See Below) Other Neurological Surgeries/Procedures: malignant tumor removed from lower back Oncologic Surgical History: Reports: None Social & Family History - Tobacco Use Smoking Status *Q: Never Smoker Second Hand Smoke Exposure: No - Caffeine Use Caffeine Use: Reports: None Other Caffeine Use: rarely - Recreational Drug Use Recreational Drug Use: No - Living Situation & Occupation Living situation: Reports: Occupation: Unemployed ED ROS GENERAL - Review of Systems Review Of Systems: Comprehensive ROS is negative, except as noted in HPI. ED EXAM, RENAL/ - Physical Exam Exam: See Below Exam Limited By: No Limitations General Appearance: Alert, WD/WN, No Apparent Distress Respiratory/Chest: No Respiratory Distress, Lungs Clear, Normal Breath Sounds, No Accessory Muscle Use, Chest Non-Tender Cardiovascular: Normal Peripheral Pulses, Regular Rate, Rhythm, No Edema, No Gallop, No JVD, No Murmur, No Rub (Male) Exam: Other (Suprapubic catheter sutured in place. Incision looks normal. There is no redness, swelling, or purulent drainage. Catheter bag is draining clear yellow urine.) Rectal (Males) Exam: Other (1 cm incision in the posterior crease of the buttocks. Draining clear serosanguineous fluid, no redness, swelling, or purulent drainage noted.) Skin Exam: Other (Horizontal lower abdominal incision well-proximated and healed. Too previously removed. No redness, swelling, or drainage present. ) Course - Vital Signs Last Recorded V/S: Last Vital Signs Temp 98.9 F 09/23/19 13:32 Pulse 91 09/23/19 13:32 Resp 16 09/23/19 13:32 BP 133/96 H 09/23/19 13:32 Pulse Ox 94 L 09/23/19 13:32 - Re-Assessments/Exams Free Text/Narrative Re-Assessment/Exam: 09/23/19 13:56 On exam, patient's suprapubic catheter looks normal. Discussed daily cleaning with normal soap and water. Incision in the buttocks crease does continue to drain serosanguineous fluid, however there is no signs of active infection at this time. He is still on Cipro and Flagyl. Recommended that he keep taking these as prescribed. He has a follow-up appointment with Dr. Rodriguez on Wednesday of this week. Recommend that he keep that for reevaluation. Discharge instructions as documented. Departure - Departure Time of Disposition: 13:57 Disposition: Home, Self-Care 01 Condition: Good Clinical Impression: Chronic suprapubic catheter - Discharge Information *PRESCRIPTION DRUG MONITORING PROGRAM REVIEWED*: No *COPY OF PRESCRIPTION DRUG MONITORING REPORT IN PATIENT EVA: No Instructions: Suprapubic Catheter Home Guide Referrals: Demian Rodriguez Jr, MD [Primary Care Provider] - Additional Instructions: You were seen in the emergency department with a concern that she may have dislodged your suprapubic catheter. On exam, the catheter looks normal. It is draining clear yellow urine. There is no signs of infection at this time. Recommend that you keep the catheter site clean with normal soap and water. Keep your appointment with Dr. Rodriguez next Wednesday for a follow-up. If you should experience any new or worsening symptoms of concern, please do not hesitate to return to the emergency department. Sepsis Event Note - Evaluation Sepsis Screening Result: No Definite Risk - Focused Exam Vital Signs: Vital Signs Temp Pulse Resp BP Pulse Ox 09/23/19 13:32 98.9 F 91 16 133/96 H 94 L Date Exam was Performed: 09/23/19 Time Exam was Performed: 13:54
== END 2019-09-23 14:18 | disposition home or self-care (01) ==
LOC: JD.ED 13:07
DX: Z46.6 Encounter for fitting and adjustment of urinary device (principal)
CPT/HCPCS: 99282; 99283

== ENCOUNTER 2019-09-24 11:42 | Emergency (ER) | payer MEDICAID ==
--- NOTE | 2019-09-24 13:56 | EDM.PDOC ---
ED HPI GENERAL MEDICAL PROBLEM - General Chief Complaint: Wound Recheck Stated Complaint: WOUND RECHECK/BLEEDING Time Seen by Provider: 09/24/19 13:16 Source of Information: Reports: Patient, Family () History Limitations: Reports: No Limitations - History of Present Illness INITIAL COMMENTS - FREE TEXT/NARRATIVE: Mr. Donaldson is a very pleasant 54-year-old man with a past medical history significant for colon cancer, diagnosed 01/30/2019, status post chemotherapy and radiation therapy, who underwent a hemicolectomy with colostomy, excision of a malignant spinal tumor, and a suprapubic catheter on 09/05/2019, at [facility]. He was seen in this ED on 09/17/2018 for a serosanguineous drainage from his coccygeal area. Work-up was unremarkable, but he was started on both ciprofloxacin and metronidazole, which he is still on. He then followed up with his PCP on , 09/21/2019, for staple removal. The patient now presents to the ED stating that he in addition to the coccygeal drainage, he developed painless drainage from his surgical abdominal wound yesterday, 09/23/2019. The patient has not developed a fever, cough, dyspnea, nausea, or vomiting. He is having normal output through his colostomy and suprapubic catheter. The patient's PCP is Dr. Demian Rodriguez. His Colorectal Surgeon is Dr. Bear Joaquin. His Radiation Oncologist is Dr. Tim Bowie. He does not recall the name of his Oncologist. He did not receive an influenza vaccine this season. - Related Data Allergies Allergy/AdvReac Type Severity Reaction Status Date / Time No Known Allergies Allergy Verified 09/24/19 11:55 Home Meds: Home Meds Acetaminophen [Tylenol Extra Strength] 500 mg PO Q4H PRN 04/12/19 [History] Ibuprofen [Advil] 400 mg PO Q6H PRN 04/12/19 [History] Acetaminophen/oxyCODONE [Percocet 325-5 MG] 1 each PO Q6H PRN #28 tab 05/02/19 [ Rx] Ciprofloxacin HCl [Cipro] 500 mg PO BID #20 tablet 09/18/19 [Rx] Magnesium Chloride [Slow-Mag] 71.5 mg PO DAILY #30 tablet. 09/18/19 [Rx] metroNIDAZOLE [Flagyl] 500 mg PO Q8H #24 tab 09/18/19 [Rx] Past Medical History HEENT History: Reports: Impaired Vision Other HEENT History: wears glasses Gastrointestinal History: Reports: Hemorrhoids Musculoskeletal History: Reports: Osteoarthritis (spine) Oncologic (Cancer) History: Reports: Colon (s/p CTx. RTx, surgery) - Past Surgical History GI Surgical History: Reports: Colon (hemicolectomy), Colostomy Male Surgical History: Reports: Suprapubic Catheter Placement Neurological Surgical History: Reports: Other (See Below) (malignant tumor removed from lower back) Social & Family History - Tobacco Use Smoking Status *Q: Never Smoker Second Hand Smoke Exposure: No - Caffeine Use Caffeine Use: Reports: None Other Caffeine Use: rarely - Alcohol Use Alcohol Use History: No - Recreational Drug Use Recreational Drug Use: No - Living Situation & Occupation Living situation: Reports: , with Spouse Occupation: Unemployed ED ROS GENERAL - Review of Systems Review Of Systems: Comprehensive ROS is negative, except as noted in HPI. ED EXAM, SKIN/RASH Exam: See Below Exam Limited By: No Limitations General Appearance: Alert, WD/WN, No Apparent Distress Eye Exam: Bilateral Eye: EOMI, Normal Inspection Ears: Normal External Exam, Hearing Grossly Normal Nose: Normal Inspection Throat/Mouth: Normal Inspection, Normal Lips, Normal Voice, No Airway Compromise Head: Atraumatic, Normocephalic GI/Abdominal: Normal Bowel Sounds, Soft, Non-Tender, No Organomegaly, No Distention, No Abnormal Bruit, No Mass, Other (Colostomy site LLQ C/D/I, with stool in bag. Transverse lower abdominal surgical wound clean and intact, however, there is a continuous drainage of a slightly cloudy yellow/orange fluid from the medial aspect, just to the left of the colostomy dressing. This drainage is increased when the abdominal wall is pressed upon. Suprapubic catheter site is C/D/I.) (Male) Exam: Deferred Rectal (Males) Exam: Hemorrhoids (left, non-thrombosed), Other (punctate site of drainage of bloody-appearing serosanguinous fluid located over coxxyx. This site does not appear to have undergone recent surgery.) Back Exam: Normal Inspection, Full Range of Motion, NT Extremities: Normal Inspection, Normal Range of Motion, No Pedal Edema, Normal Capillary Refill Neurological: Alert, Oriented, Normal Cognition, No Motor/Sensory Deficits Psychiatric: Normal Affect Skin: Warm, Dry, Intact, Normal Color, No Rash Course - Vital Signs Last Recorded V/S: Last Vital Signs Temp 36.7 C 09/24/19 11:57 Pulse 102 H 09/24/19 11:57 Resp 16 09/24/19 11:57 BP 130/92 H 09/24/19 11:57 Pulse Ox 95 09/24/19 11:57 - Re-Assessments/Exams Free Text/Narrative Re-Assessment/Exam: 09/24/19 13:51 The patient has a considerable amount of yellow/orange serosanguineous drainage from his anterior abdominal wound, plus a small amount of bloody serosanguineous drainage from the non-surgical site just over his coccyx. I suspect that the drainage is coming from seromas, and I doubt that these are infected, particularly because he does not have a fever, and he is already on ciprofloxacin and metronidazole. Whether or not the patient might benefit from a CT scan to evaluate is unclear. I will endeavor to contact the patient's surgeon, Dr. Joaquin, at [facility]. 09/24/19 13:55 Notified by our master sheet clerk Samara that [facility] will call us back as soon as possible. 09/24/19 14:35 Case discussed with Tutu at [facility] at 14:27. Case then discussed with Dr. Carson, surgeon on-call at [facility], at 14: 31. Because the drainage is not purulent, and because the patient is afebrile and already on antibiotics, he is not concerned that the patient has an infection, and is recommending patience. He noted that because the patient underwent radiation therapy prior to surgery, these wounds may take a long time to heal. He recommended that the patient contact the office of Dr. Joaquin tomorrow, but that no specific testing be performed today. 09/24/19 14:41 The above was discussed with the patient (his is not currently present). He is satisfied, and will contact the office of Dr. Lugo tomorrow. Departure - Departure Time of Disposition: 14:41 Disposition: Home, Self-Care 01 Condition: Good Clinical Impression: Increased wound drainage - Discharge Information *PRESCRIPTION DRUG MONITORING PROGRAM REVIEWED*: Not Applicable *COPY OF PRESCRIPTION DRUG MONITORING REPORT IN PATIENT EVA: Not Applicable Instructions: Wound Care, Adult Referrals: Demian Rodriguez Jr, MD [Primary Care Provider] - Bear Joaquin MD [Ordering Only Provider] - Tim Bowie MD [Ordering Only Provider] - Forms: ED Department Discharge Additional Instructions: You were seen in the emergency room for drainage from your abdominal surgical wound, as well as continued bloody drainage from your coccygeal area. Your case was discussed with Dr. Carson, the Surgeon on-call at [facility]. He recommended no testing today, however, he suggested that you contact the office of your Surgeon, Dr. Bear Joaquin, this week, to see if he would like to see you in his office. In the meantime, you are to change your dressings as often as necessary, and continue to take the antibiotics. If any other problems, please do not hesitate to return to the ER. Sepsis Event Note - Evaluation Sepsis Screening Result: No Definite Risk - Focused Exam Vital Signs: Vital Signs Temp Pulse Resp BP Pulse Ox 09/24/19 11:57 36.7 C 102 H 16 130/92 H 95 Date Exam was Performed: 09/24/19 Time Exam was Performed: 17:38
== END 2019-09-24 15:18 | disposition home or self-care (01) ==
LOC: JD.ED 11:42
DX: T81.89XA Other complications of procedures, not elsewhere classified, initial encounter (principal); Z79.899 Other long term (current) drug therapy; Z93.3 Colostomy status; X58.XXXA Exposure to other specified factors, initial encounter
CPT/HCPCS: 99282; 99283

== ENCOUNTER 2019-11-20 13:02 | Emergency (ER) | payer MEDICAID | END 2019-11-20 13:15 | LOC: JD.ED 13:02 | DX: Z53.21 Procedure and treatment not carried out due to patient leaving prior to being seen by health care provider (principal) ==

== ENCOUNTER 2020-10-02 21:47 | Emergency (ER) | payer MEDICAID ==
--- NOTE | 2020-10-02 23:13 | EDM.PDOC ---
ED HPI GENERAL MEDICAL PROBLEM - General Chief Complaint: Respiratory Problem Stated Complaint: CONGESTION/CHEST TIGHTNESS Time Seen by Provider: 10/02/20 21:57 Source of Information: Reports: Patient History Limitations: Reports: No Limitations - History of Present Illness INITIAL COMMENTS - FREE TEXT/NARRATIVE: 55-year-old male presents to the emergency department this evening with complaints of upper respiratory issues. The patient states that about 2 days ago he started feeling unwell started with sinus congestion, cough, sore throat and chest congestion. He denies having any fever or chills over the course of the past 2 days. Denies any nausea, vomiting or diarrhea. States that initially he thought that it was seasonal allergies kicking in and has been taking decongestants over the course of the past 24 hours. He states today he was seen by gastroenterology for a surgical consult regarding his ostomy site. He has supposed to have colonoscopy on Wednesday however he wants to be evaluated prior to that. Denies being around any known sick individuals over the course of the past week. States he is otherwise healthy and does not take any prescription medications. Chest Pain Score (Numeric/FACES): 8 - Related Data Allergies Allergy/AdvReac Type Severity Reaction Status Date / Time No Known Allergies Allergy Verified 10/02/20 22:08 Home Meds: Home Meds . 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 Musculoskeletal History: Reports: Osteoarthritis Other Musculoskeletal History: left hip osteoporosis Neurological History: Reports: None Psychiatric History: Reports: None Endocrine/Metabolic History: Reports: None Hematologic History: Reports: None Immunologic History: Reports: None Oncologic (Cancer) History: Reports: Colon Dermatologic History: Reports: None - Past Surgical History Head Surgeries/Procedures: Reports: None HEENT Surgical History: Reports: None Cardiovascular Surgical History: Reports: None Respiratory Surgical History: Reports: None GI Surgical History: Reports: Colon, Colostomy Male Surgical History: Reports: Suprapubic Catheter Placement Endocrine Surgical History: Reports: None Neurological Surgical History: Reports: Other (See Below) Other Neurological Surgeries/Procedures: malignant tumor removed from lower back Oncologic Surgical History: Reports: None Social & Family History - Tobacco Use Tobacco Use Status *Q: Never Tobacco User - Caffeine Use Caffeine Use: Reports: None Other Caffeine Use: rarely - Recreational Drug Use Recreational Drug Use: No - Living Situation & Occupation Living situation: Reports: , with Spouse Occupation: Unemployed ED ROS GENERAL - Review of Systems Review Of Systems: Comprehensive ROS is negative, except as noted in HPI. ED EXAM, GENERAL - Physical Exam Exam: See Below Exam Limited By: No Limitations General Appearance: Alert, WD/WN, Mild Distress Ears: Normal External Exam, Hearing Grossly Normal Nose: Normal Inspection, Normal Mucosa, No Blood Throat/Mouth: Normal Inspection, Normal Lips, Normal Teeth, Normal Gums, Normal Voice, No Airway Compromise, Inflammation Head: Atraumatic, Normocephalic Neck: Normal Inspection. No: Lymphadenopathy (L), Lymphadenopathy (R) Respiratory/Chest: No Respiratory Distress, Lungs Clear, Normal Breath Sounds, No Accessory Muscle Use, Chest Non-Tender Cardiovascular: Normal Peripheral Pulses, Regular Rate, Rhythm, No Edema, No Murmur GI/Abdominal: Normal Bowel Sounds, Soft, Non-Tender, No Distention (Male) Exam: Deferred Rectal (Males) Exam: Deferred Back Exam: Normal Inspection, Full Range of Motion Extremities: Normal Inspection, Normal Range of Motion, Non-Tender, No Pedal Edema, Normal Capillary Refill Neurological: Alert, Oriented, Normal Cognition Psychiatric: Normal Affect, Normal Mood Skin Exam: Warm, Dry, Intact, Normal Color, No Rash Lymphatic: No Adenopathy Course - Vital Signs Text/Narrative:: As previously stated patient developed upper respiratory symptoms about 2 days ago. Did to the seasonal allergies however he states that his throat has become more sore and he has developed a cough of clear sputum. He has sinus congestion with rhinorrhea and chest congestion cough. Also complains of a sore throat. Denies any recent fever or chills. Patient states he is otherwise healthy. He does not smoke. He does not take any prescription medications. He is to have a colonoscopy 2 days from now however his wanted him evaluated as she is concerned that he should not have this completed. At the time of my assessment patient does sound like he has sinus congestion noted. His throat is erythematous however there is no exudate noted. States he does have chest congestion and a cough however his lung sounds are clear. O2 saturations are 98% on room air. I have ordered a chest x-ray, and influenza a, B and Covid swab on this patient. Last Recorded V/S: Last Vital Signs Temp 99.4 F 10/02/20 21:54 Pulse 104 H 10/02/20 21:54 Resp 18 10/02/20 21:54 BP 145/93 H 10/02/20 21:54 Pulse Ox 93 L 10/02/20 21:54 - Orders/Labs/Meds Orders: Active Orders 24 hr Category Date Time Status Chest 1V Frontal [CR] Stat Exams 10/02/20 22:29 Taken Labs: Laboratory Tests 10/02/20 Range/Units 22:41 Influenza Type A RNA Negative (NEGATIVE) Influenza Type B RNA Negative (NEGATIVE) SARS-CoV-2 RNA ([facility]) Negative (NEGATIVE) - Re-Assessments/Exams Free Text/Narrative Re-Assessment/Exam: 10/03/20 00:07 Chest xray was reviewed by myself and Dr. Cooley and nothing acute is appreciated. Influenza A, influenza B and covid tests are all negative. I discussed these results with the patient and he will be discharged home. Departure - Departure Time of Disposition: 00:08 Disposition: Home, Self-Care 01 Condition: Good Clinical Impression: Upper respiratory infection, viral - Discharge Information Instructions: Viral Respiratory Infection, [id number] Referrals: PCP,None [Primary Care Provider] - Forms: ED Department Discharge Additional Instructions: You were seen in the emergency department today with complaints of cough, chest congestion, sinus congestion and a sore throat. Chest x-ray was completed as well as testing for influenza A, influenza B and Covid. Chest x-ray was unremarkable and did not show any signs of pneumonia and influenza and Covid testing was all negative. It is fairly likely that you have a viral upper respiratory infection. Recommend that you go home and rest and drink plenty of fluids. May take Tylenol 650 mg or ibuprofen 600 mg as needed for discomfort. Should your condition worsen or change, do not hesitate returning to the emergency department. Sepsis Event Note (ED) - Evaluation Sepsis Screening Result: No Definite Risk - Focused Exam Vital Signs: Vital Signs Temp Pulse Resp BP Pulse Ox 10/02/20 21:54 99.4 F 104 H 18 145/93 H 93 L - My Orders Last 24 Hours: My Active Orders 10/02/20 22:29 Chest 1V Frontal [CR] Stat - Assessment/Plan Last 24 Hours: My Active Orders 10/02/20 22:29 Chest 1V Frontal [CR] Stat
[2020-10-02 23:37] LABS: CORONAVIRUS COVID-19 NAA NEGATIVE (NEGATIVE)
--- NOTE | 2020-10-03 08:38 | CR ---
Chest: Portable view of the chest was obtained. Comparison: Prior chest x-ray of 09/17/19. Heart size and mediastinum are normal. Lungs are clear with no acute parenchymal change. No acute osseous finding is appreciated. Scattered degenerative endplate spurring is noted within the spine. Impression: 1. Findings as noted above. 2. Nothing acute is appreciated on portable chest x-ray. Diagnostic code #2
== END 2020-10-03 00:45 | disposition home or self-care (01) ==
LOC: JD.ED 21:47
DX: J06.9 Acute upper respiratory infection, unspecified (principal); Z20.822 Contact with and (suspected) exposure to COVID-19
CPT/HCPCS: 0240U; 71045; 99283; 99282

== ENCOUNTER 2021-07-30 08:00 | Emergency (ER) | payer MEDICAID ==
[2021-07-30] MEDS ORDERED: Sodium Chloride 0.9% 1,000 ML IV STA (08:38)
[2021-07-30] MEDS ORDERED: Sodium Chloride 0.9% 10 ML Syringe FLUSH PRN ×2 (08:38→08:48)
[2021-07-30] MEDS ORDERED: Diatrizoate Meglumine/Diatrizoate Sodium 37% 120 ML Bottle PO ONE (08:48)
[2021-07-30] MEDS ORDERED: Iopamidol 612 MG/ML 100 ML Bottle IVPUSH ONE (08:48)
[2021-07-30 10:08] LABS: CORONAVIRUS COVID-19 NAA POSITIVE (NEGATIVE)
== END 2021-07-30 13:43 | disposition home or self-care (01) ==
LOC: JD.ED 08:00
DX: U07.1 COVID-19 (principal); N39.0 Urinary tract infection, site not specified; K46.9 Unspecified abdominal hernia without obstruction or gangrene; E11.9 Type 2 diabetes mellitus without complications; Z79.899 Other long term (current) drug therapy
CPT/HCPCS: 0241U; 36415; 71045; 74177; 80053; 81001; 83690; 85025; 99284; J7030; Q9963; Q9967

== ENCOUNTER 2022-02-17 14:05 | Emergency (ER) | payer MEDICARE, MEDICAID ==
[2022-02-17] MEDS ORDERED: Ondansetron 4 MG/2 ML SDV IVPUSH ONE (14:28)
[2022-02-17] MEDS ORDERED: HYDROmorphone 0.5 MG/0.5 ML Syringe IVPUSH ONE (14:28)
[2022-02-17] MEDS: Aspirin 81 MG Tab.Chew PO ONE ×2 (14:40→14:41)
[2022-02-17] MEDS ORDERED: Ketorolac 30 MG/ML SDV IVPUSH ONE (15:19)
== END 2022-02-17 17:51 | disposition home or self-care (01) ==
LOC: JD.ED 14:05
DX: R07.89 Other chest pain (principal)
CPT/HCPCS: 36415; 71046; 80053; 84484; 85025; 85379; 86140; 93005; 96374; 96375; 99285; A9270; J1170; J1885; J2405

== ENCOUNTER 2022-02-17 22:36 | Emergency (ER) | payer MEDICAID, MEDICARE ==
[2022-02-18] MEDS ORDERED: Sodium Chloride 0.9% 10 ML Syringe FLUSH PRN (00:33)
[2022-02-18 01:01] LABS: ESTIMATED GFR 100 mL/min (>60)
[2022-02-18] MEDS ORDERED: Orphenadrine 100 MG Tab.ER PO STA (02:43)
[2022-02-18] MEDS ORDERED: Ibuprofen 600 MG Tab PO ONE (02:43)
== END 2022-02-18 03:12 | disposition home or self-care (01) ==
LOC: JD.ED 22:36
DX: R07.89 Other chest pain (principal); E78.00 Pure hypercholesterolemia, unspecified; I10 Essential (primary) hypertension; M19.90 Unspecified osteoarthritis, unspecified site; E11.9 Type 2 diabetes mellitus without complications; Z86.16 Personal history of COVID-19; Z79.899 Other long term (current) drug therapy; Z20.822 Contact with and (suspected) exposure to COVID-19
CPT/HCPCS: 36415; 71045; 80053; 83735; 84484; 85025; 85379; 85610; 93005; 99285; A9270; U0002

== ENCOUNTER 2022-02-22 11:12 | Emergency (ER) | payer MEDICARE ==
[2022-02-22] MEDS ORDERED: Ketorolac 30 MG/ML SDV IVPUSH ONE (11:39)
[2022-02-22] MEDS ORDERED: Sodium Chloride 0.9% 10 ML Syringe FLUSH PRN (11:39)
[2022-02-22 12:14] LABS: ESTIMATED GFR 104 mL/min (>60)
[2022-02-22] MEDS ORDERED: Iopamidol 755 Mg/ML 100 ML Bottle IVPUSH ONE ×2 (13:32→13:33)
[2022-02-22] MEDS ORDERED: Sodium Chloride 0.9% 100 ML IV SCH ×2 (13:45)
== END 2022-02-22 14:15 | disposition home or self-care (01) ==
LOC: JD.ED 11:12
DX: R07.89 Other chest pain (principal); E78.00 Pure hypercholesterolemia, unspecified; I10 Essential (primary) hypertension; E11.9 Type 2 diabetes mellitus without complications; M19.90 Unspecified osteoarthritis, unspecified site; Z86.16 Personal history of COVID-19; Z79.899 Other long term (current) drug therapy; Z20.822 Contact with and (suspected) exposure to COVID-19
CPT/HCPCS: 36415; 71275; 80053; 83735; 83880; 84484; 85025; 86140; 93005; 96374; 99285; J1885; Q9967; U0002; 93010; 99284

== ENCOUNTER 2022-03-08 22:08 | Emergency (ER) | payer MEDICARE ==
[2022-03-08] MEDS ORDERED: Morphine 4 MG/ML Syringe IVPUSH PRN (22:50)
[2022-03-08] MEDS ORDERED: Aspirin 81 MG Tab.Chew PO ONE (22:50)
[2022-03-08] MEDS ORDERED: Sodium Chloride 0.9% 10 ML Syringe FLUSH PRN (22:50)
== END 2022-03-09 02:00 | disposition home or self-care (01) ==
LOC: JD.ED 22:08
DX: R07.9 Chest pain, unspecified (principal); E78.00 Pure hypercholesterolemia, unspecified; I10 Essential (primary) hypertension; E11.9 Type 2 diabetes mellitus without complications; Z79.899 Other long term (current) drug therapy; Z86.16 Personal history of COVID-19
CPT/HCPCS: 36415; 71045; 80053; 84484; 85025; 85379; 93005; 96374; 99285; A9270; J2270; J3490; 93010; 99284

== ENCOUNTER 2022-05-31 23:52 | Emergency (ER) | payer MEDICARE | END 2022-06-01 01:50 | disposition home or self-care (01) | LOC: JD.ED 23:52 | DX: K91.841 Postprocedural hemorrhage of a digestive system organ or structure following other procedure (principal); E78.00 Pure hypercholesterolemia, unspecified; I10 Essential (primary) hypertension; E11.9 Type 2 diabetes mellitus without complications; Z79.84 Long term (current) use of oral hypoglycemic drugs; Z79.899 Other long term (current) drug therapy | CPT/HCPCS: 99283 ==

== ENCOUNTER 2023-11-16 10:59 | Emergency (ER) | payer MEDICAID, MEDICARE ==
[2023-11-16] MEDS: Sodium Chloride 0.9% 1,000 ML IV STA (12:12)
[2023-11-16] MEDS: Sodium Chloride 0.9% 10 ML Syringe FLUSH PRN (12:13)
[2023-11-16 12:25] LABS: BASOPHILS PERCENT AUTO 0.6 % (0.0-1.0); EOSINOPHILS ABSOLUTE AUTO 0.2 K/mm3 (0.0-0.4); EOSINOPHILS PERCENT AUTO 3.6 % (0.0-6.0); HEMATOCRIT 40.7 % (42.0-52.0); HEMOGLOBIN 14.8 gm/dl (14.0-18.0); IMMATURE GRAN ABSOLUTE AUTO 0.04 K/mm3 (0.00-0.05); IMMATURE GRAN PERCENT AUTO 0.8 % (0.0-0.4); LYMPHOCYTES ABSOLUTE AUTO 1.1 K/mm3 (1.0-4.8); LYMPHOCYTES PERCENT AUTO 20.4 % (24.0-44.0); MEAN CORPUSCULAR HEMOGLOBIN 30.7 pg (28.0-32.0); MEAN CORPUSCULAR HGB CONC 36.4 g/dl (32.0-36.0); MEAN CORPUSCULAR VOLUME 84.4 fl (83.0-99.0); MEAN PLATELET VOLUME 10.9 fl (9.4-12.4); MONOCYTES ABSOLUTE AUTO 0.3 K/mm3 (0.0-0.8); MONOCYTES PERCENT AUTO 6.5 % (0.0-8.0); NEUTROPHILS ABSOLUTE AUTO 3.6 K/mm3 (1.8-7.7); NEUTROPHILS PERCENT AUTO 68.1 % (41.0-71.0); PLATELET COUNT,PLT 125 K/mm3 (150-400); RED BLOOD CELL COUNT 4.82 M/mm3 (4.52-5.90); WHITE BLOOD CELL COUNT,WBC 5.24 K/mm3 (3.9-11.3)
[2023-11-16 12:32] LABS: APPEARANCE,URINE CLEAR (Clear); BILIRUBIN,URINE NEGATIVE (Negative); COLOR,URINE LIGHT YELLOW (Yellow); GLUCOSE,URINE 2+ (Negative); KETONES,URINE NEGATIVE (Negative); LEUKOCYTE ESTERASE,URINE NEGATIVE (Negative); NITRITE,URINE NEGATIVE (Negative); OCCULT BLOOD,URINE NEGATIVE (Negative); PROTEIN,URINE NEGATIVE (Negative); UROBILINOGEN,URINE 0.2 (0.2-1.0)
[2023-11-16 12:47] LABS: HEMOGLOBIN A1C 9.8 %
[2023-11-16 12:55] LABS: A/G RATIO 1.2 (1-2); ALBUMIN 3.6 g/dl (3.4-5.0); ANION GAP 11.2 (5-15); BILIRUBIN TOTAL 0.7 mg/dL (0.2-1.0); C-REACTIVE PROTEIN 0.47 mg/dL (<0.30); CALCIUM 8.8 mg/dL (8.5-10.1); CREATININE 1.1 mg/dL (0.7-1.3); EST CRCL DRUG DOSING (CG) 77.96 mL/min; POTASSIUM,K 4.2 mEq/L (3.5-5.1); PROTEIN TOTAL,TP 6.6 g/dl (6.4-8.2)
== END 2023-11-16 14:07 | disposition home or self-care (01) ==
LOC: JD.ED 10:59
DX: E11.65 Type 2 diabetes mellitus with hyperglycemia (principal); E78.00 Pure hypercholesterolemia, unspecified; I10 Essential (primary) hypertension; Z86.16 Personal history of COVID-19; Z79.899 Other long term (current) drug therapy
CPT/HCPCS: 36415; 80053; 81003; 82947; 83036; 85025; 86140; 96360; 96361; 99284; J3490; J7030; 99282